=== PATIENT | female | born 1995 | race Caucasian/White ===

== ENCOUNTER 2016-12-10 20:44 | Emergency (ER) | payer OTHER ==
[2016-12-10 21:25] VITALS: BP 146/92; PULSE 85; RESP 18; TEMP 99; O2SAT 98
[2016-12-10 21:32] LABS: COLOR YELLOW; LEUKOCYTE ESTERASE,URINE NEGATIVE (NEGATIVE); NITRITE,URINE NEGATIVE (NEGATIVE); PH,URINE 6.5 (5.0-7.5)
[2016-12-10 22:06] LABS: % IMMATURE GRANULYOCYTES 0.2 % (0.0-1.1); ABSOLUTE IMMATURE GRANULOCYTES 0.02 10^3/uL (0.00-0.10); ADD DIFF? NO; ADD MORPH? NO; ADD SCAN? NO; ATYPICAL LYMPHOCYTE FLAG 40 (0-99); FRAGMENT RBC FLAG 0 (0-99); HEMATOCRIT 35.8 % (38.0-47.0); HEMOGLOBIN 11.9 g/dL (12.6-16.3); LEFT SHIFT FLG 0 (0-99); LIPEMIA HEMOLYSIS FLAG 80 (0-99); MEAN CELL HEMOGLOBIN 28.4 pg (27.9-34.1); MEAN CELL HEMOGLOBIN CONCENTR. 33.2 g/dL (32.4-36.7); MEAN CELL VOLUME 85.4 fL (81.5-99.8); MEAN PLATELET VOLUME 9.8 fL (8.7-11.7); PLATELET CLUMPS FLAG 0 (0-99); PLATELET COUNT 412 10^3/uL (150-400); RED BLOOD CELL COUNT 4.19 10^6/uL (4.18-5.33); RED CELL DISTRIBUTION WIDTH 13.2 % (11.5-15.2)
[2016-12-10 22:28] LABS: ALANINE AMINOTRANSFERASE 22 IU/L (9-52); ALBUMIN 4.5 g/dL (3.5-5.0); ALKALINE PHOSPHATASE 77 IU/L (38-126); ANION GAP 17 mEq/L (8-16); ASPARTATE AMINOTRANSFERASE 16 IU/L (14-46); BILIRUBIN,TOTAL 0.4 mg/dL (0.1-1.4); CALCIUM 9.5 mg/dL (8.5-10.4); CARBON DIOXIDE 24 mEq/l (22-31); CHLORIDE 100 mEq/L (97-110); CREATININE 0.7 mg/dL (0.6-1.0); GLOMERULAR FILTRATION RATE > 60; GLUCOSE 92 mg/dL (70-100); POTASSIUM 3.9 mEq/L (3.5-5.2); SODIUM 141 mEq/L (134-144); TOTAL PROTEIN 7.6 g/dL (6.3-8.2)
[2016-12-10 22:39] LABS: RBC,URINE OCCASIONAL /hpf (0-3); WBC,URINE OCCASIONAL /hpf (0-3)
[2016-12-10] MEDS ORDERED: KETOROLAC 30 MG/1 ML SDV IVP ONE (23:09)
--- NOTE | 2016-12-10 23:14 | UCPHY ---
H & P Patient Type: Established Chief Complaint Nursing Narrative: r abdominal pain x 2 weeks, getting worse. Denies trauma. Has felt nauseas, denies vomitingm normal BM Time Seen by Provider: 12/10/16 22:10 HPI/ROS: Over the past 2 weeks this patient is under intermittent upper belly pain occasionally feels right upper quadrant and occasionally epigastric with no clear exacerbating factors. Peak intensity 7/10 described as achy in nature. Symptoms seem to diminish when she lies flat compared to when to use flexed forward. She has some nausea but no super vomiting. She notes no other exacerbating factors. She reports there is no change when she eats food. He does report increased stress due to finals and college recently. She is accompanied by her father. REVIEW OF SYSTEMS: Constitutional: No fevers or chills ENT: No URI symptoms Respiratory: No cough shortness of breath Cardiac: No chest pain or heart palpitations Gastrointestinal: No lower belly pain. Normal BMs. Genitourinary: No urinary symptoms. Last menstrual period was normal timing for her. She reports no vaginal discharge. Musculoskeletal: No recent injuries. She does report right lower rib discomfort Skin: No rash Neurological: No complaint 10 point ROS is otherwise negative Source: Patient Exam Limitations: No limitations - Personal History LMP (Females 10-55): 8-14 Days Ago - Medical/Surgical History PMH: otherwise healthy Hx Asthma: No Hx Chronic Respiratory Disease: No Hx Diabetes: No Hx Cardiac Disease: No Hx Renal Disease: No Hx Cirrhosis: No Hx Alcoholism: No Hx HIV/AIDS: No Hx Splenectomy or Spleen Trauma: No Other PMH: denies - Family History Significant Family History: No pertinent family hx - Social History Smoking Status: Never smoked Alcohol Use: None Drug Use: None - Physical Exam Exam: General Appearance: Alert, no distress. Eyes: Pupils equal and round no pallor or injection. ENT, Mouth: Mucous membranes moist. Respiratory: There are no retractions, lungs are clear to auscultation. Cardiovascular: Regular rate and rhythm. Gastrointestinal: Normoactive soft, mild epigastric tenderness with minimal right upper quadrant tenderness. Back: No CVA tenderness Neurological: Alert with no focal deficits. Skin: Warm and dry, no rashes. Musculoskeletal: Neck is supple nontender. Extremities are symmetrical, full range of motion. Psychiatric: Mood and affect normal DIFFERENTIAL DIAGNOSIS: After history and physical exam differential diagnosis was considered for gastritis, doubt ulcer, hepatitis, cholecystitis, acid reflux , Constitutional: Initial Vital Signs Temperature (C) 37.2 C 12/10/16 21:22 Heart Rate 85 12/10/16 21:22 Respiratory Rate 18 12/10/16 21:22 Blood Pressure 146/92 H 12/10/16 21:22 O2 Sat (%) 98 12/10/16 21:22 Allergies/Adverse Reactions: No Known Allergies Allergy (Verified 12/10/16 21:22) Home Medications: Medication Instructions Recorded Pantoprazole Sodium [Protonix 40mg 40 mg PO DAILY #30 tab 12/10/16 (RX)] Medical Decision Making ED Course/Re-evaluation: CBC with minimal elevation of white count Comp metabolic panel is normal, lipase normal, HCG is negative Discussion: Epigastric pain with no significant findings and a fairly benign exam. I suspect that she has gastritis I counseled her regarding this. I recommended Maalox and a proton pump inhibitor. That she may have stress related gastritis. She does not have a surgical abdomen. She is tolerating good p.o. intake. She will follow up with primary care physician for any ongoing symptoms will follow up with [facility]. - Data Points Laboratory Results: Laboratory Results 12/10/16 22:00 12/10/16 22:00 Departure - Departure Disposition: Home, Routine, Self-Care Clinical Impression: Upper abdominal pain Clinical Impression: (Ruled Out): Right upper quadrant abdominal pain Condition: Good Instructions: Acute Abdominal Pain (ED) Additional Instructions: Diagnosis: Upper abdominal pain Plan: Power diet until you feel improved Maalox for discomfort if needed Protonix or [id number] Prilosec-40 mg a day and continue this medication for 5-7 days after resolution of her symptoms. Call your primary care physician to arrange follow-up appointment for recheck for sometime in the next 3-10 days. Follow up with a chalk cutter listed below-Dr. Fonseca if he have any ongoing symptoms Go to the emergency department for any significant worsening despite treatment plan Referrals: Leonel Fonseca MD, FACG [Medical Doctor] - As per Instructions Prescriptions: Pantoprazole Sodium [Protonix 40mg (RX)] 40 mg PO DAILY #30 tab - PQRS PQRS Measurement: NA
== END 2016-12-10 23:31 | disposition home or self-care (01) ==
LOC: CED 20:44
DX: R10.13 Epigastric pain (principal)
CPT/HCPCS: 80053-PO; 81003-PO; 81015-PO; 81025-PO; 83690-PO; 85025-PO; 99214-PO; G0463-PO